=== PATIENT | male | born 1970 | race Two or more races ===

== ENCOUNTER 2018-03-18 18:03 | Emergency (ER) | payer MEDICAID ==
[~2018-03-18] VITALS: Ht 175.3 cm; Wt 86.2 kg
[2018-03-18 18:14] VITALS: BP 141/78
== END 2018-03-19 00:36 | disposition home or self-care (01) ==
LOC: EDBD 18:03 → ER 18:20
DX: S33.5XXA Sprain of ligaments of lumbar spine, initial encounter (principal); X50.1XXA Overexertion from prolonged static or awkward postures, initial encounter; Y93.67 Activity, basketball; Y92.89 Other specified places as the place of occurrence of the external cause; Y99.8 Other external cause status
CPT/HCPCS: 72100

== ENCOUNTER 2022-03-03 10:57 | Inpatient (IN) | payer MEDICAID ==
[~2022-03-03] VITALS: Ht 167.6 cm; Wt 92.8 kg
[2022-03-03 11:51] LABS: Basophils # (auto) 0 10 ^3/uL (0-0.2); Basophils % (auto) 0.3 % (0.0-2.0); Eosinophils # (auto) 0 10 ^3/uL (0-0.8); Eosinophils % (auto) 0.5 % (0.0-7.0); Hematocrit 44.3 % (41.0-53.0); Hemoglobin 14.9 g/dL (13.5-17.5); Lymphocytes # (auto) 1.5 10 ^3/uL (0.4-5.4); Lymphocytes % (auto) 18.2 % (10.0-50.0); Mean Corpuscular Hemoglobin 29.9 pg (28.0-32.0); Mean Corpuscular Hgb Conc. 33.7 g/dL (32.0-36.0); Mean Corpuscular Volume 88.7 fL (80.0-100.0); Monocytes # (auto) 0.6 10 ^3/uL (0-1.3); Monocytes % (auto) 6.9 % (0.0-12.0); Neutrophils % (auto) 74.1 % (37.0-80.0); Nucleated Red Blood Cells % 0.1 %; Red Blood Cells 4.99 10^6/uL (4.5-5.90); Red Cell Distribution Width 12.9 % (11.8-14.3); White Blood Cell 8.1 10^3/uL (4.4-10.8)
[2022-03-03 12:01] LABS: Albumin 4.3 g/dL (3.4-5.0); Calcium 9.3 mg/dL (8.5-10.1); Potassium 4.1 mmol/L (3.5-5.1)
[2022-03-03 12:06] LABS: BUN/Creatinine Ratio 16.4; Total Protein 8.4 g/dL (6.4-8.2)
[2022-03-03 12:42] LABS: Urine Bacteria NONE SEEN /hpf (None Seen); Urine Blood Negative /uL (Negative); Urine Mucus MODERATE (None Seen); Urine Specific Gravity 1.028 (1.001-1.035); Urine WBC 2 /hpf (0 - 3)
[2022-03-03] MEDS ORDERED: SODIUM CHLORIDE 0.9% 1,000 ML IVB ONE (13:45)
[2022-03-03] MEDS ORDERED: SODIUM CHLORIDE 0.9% 1,000 ML IV ONE (13:45)
[2022-03-03] MEDS ORDERED: KETOROLAC TROMETH 30 MG/ML 1ML VIAL IV ONE (13:45)
[2022-03-03] MEDS ORDERED: TAMSULOSIN HYDROCHLORIDE 0.4 MG CAP PO ONE (13:45)
[2022-03-03] MEDS ORDERED: FUROSEMIDE 40 MG/4 ML VIAL IV ONE (13:45)
[2022-03-03] MEDS ORDERED: HYDROcodone-ACET 5/325MG TAB PO PRN (14:00)
[2022-03-03] MEDS ORDERED: LORazepam 0.5 MG TAB PO PRN (14:00)
[2022-03-03] MEDS ORDERED: TEMAZEPAM 15 MG CAP PO PRN (14:00)
[2022-03-03] MEDS ORDERED: MAALOX PLUS or MAALOX 30 ML PO PRN (14:00)
[2022-03-03] MEDS ORDERED: ACETAMINOPHEN 325 MG TAB PO PRN (14:00)
[2022-03-03] MEDS ORDERED: ONDANSETRON HCL 4 MG/2 ML VIAL IV PRN (14:00)
[2022-03-03] MEDS ORDERED: DOCUSATE SOD 100 MG CAP PO PRN (14:00)
[2022-03-03] MEDS: SODIUM CHLORIDE 0.9% 1,000 ML IV SCH (22:09)
[2022-03-03 23:41] VITALS: BP 138/80
[2022-03-04 00:18] VITALS: BP 138/80
[2022-03-04] MEDS: SODIUM CHLORIDE 0.9% 1,000 ML IV SCH ×3 (01:16→21:47)
[2022-03-04 05:00] VITALS: BP 105/64
[2022-03-04] MEDS ORDERED: KEP500T PO ×3 (05:00→05:01)
[2022-03-04] MEDS ORDERED: CHOL20007 PO (05:03)
[2022-03-04] MEDS ORDERED: FENO145T27 PO (05:03)
[2022-03-04] MEDS ORDERED: ATOR20TA50 PO (05:08)
[2022-03-04] MEDS: levETIRAcetam 500 MG TAB PO SCH ×3 (05:13→21:45)
[2022-03-04 07:30] VITALS: BP 141/78
[2022-03-04 07:58] LABS: Basophils # (auto) 0 10 ^3/uL (0-0.2); Basophils % (auto) 0.3 % (0.0-2.0); Eosinophils # (auto) 0.1 10 ^3/uL (0-0.8); Eosinophils % (auto) 0.9 % (0.0-7.0); Hematocrit 41.6 % (41.0-53.0); Hemoglobin 14.1 g/dL (13.5-17.5); Lymphocytes # (auto) 2.1 10 ^3/uL (0.4-5.4); Lymphocytes % (auto) 22.3 % (10.0-50.0); Mean Corpuscular Hgb Conc. 33.9 g/dL (32.0-36.0); Mean Corpuscular Volume 88.7 fL (80.0-100.0); Monocytes # (auto) 0.8 10 ^3/uL (0-1.3); Monocytes % (auto) 8.6 % (0.0-12.0); Neutrophils # (auto) 6.4 10 ^3/uL (1.6-8.6); Neutrophils % (auto) 67.9 % (37.0-80.0); Nucleated Red Blood Cells % 0.1 %; Red Blood Cells 4.69 10^6/uL (4.5-5.90); Red Cell Distribution Width 12.9 % (11.8-14.3); White Blood Cell 9.5 10^3/uL (4.4-10.8)
[2022-03-04 08:08] LABS: Calcium 8.9 mg/dL (8.5-10.1); Potassium 3.9 mmol/L (3.5-5.1)
[2022-03-04 08:11] LABS: BUN/Creatinine Ratio 25.2
[2022-03-04] MEDS: TAMSULOSIN HYDROCHLORIDE 0.4 MG CAP PO SCH (08:26)
[2022-03-04] MEDS: FUROSEMIDE 20 MG TAB PO SCH (08:26)
[2022-03-04] MEDS: MORPHINE SULFATE INJ 2 MG/ml SYRG IV PRN ×3 (08:27→21:47)
[2022-03-04 12:00] VITALS: BP 118/71
[2022-03-04 16:00] VITALS: BP 116/72
[2022-03-04 22:00] VITALS: BP 132/77
[2022-03-04] MEDS ORDERED: ATORVASTATIN 20 MG TAB PO SCH (22:00)
[2022-03-05 05:08] VITALS: BP 104/52
[2022-03-05] MEDS: levETIRAcetam 500 MG TAB PO SCH ×2 (06:07→14:53)
[2022-03-05] MEDS: SODIUM CHLORIDE 0.9% 1,000 ML IV SCH ×2 (06:07→16:00)
[2022-03-05 06:38] LABS: Basophils # (auto) 0 10 ^3/uL (0-0.2); Basophils % (auto) 0.2 % (0.0-2.0); Eosinophils # (auto) 0.1 10 ^3/uL (0-0.8); Eosinophils % (auto) 1.7 % (0.0-7.0); Hematocrit 38.9 % (41.0-53.0); Hemoglobin 13.5 g/dL (13.5-17.5); Lymphocytes % (auto) 25.4 % (10.0-50.0); Mean Corpuscular Hemoglobin 30.3 pg (28.0-32.0); Mean Corpuscular Hgb Conc. 34.7 g/dL (32.0-36.0); Mean Corpuscular Volume 87.3 fL (80.0-100.0); Monocytes # (auto) 0.7 10 ^3/uL (0-1.3); Monocytes % (auto) 8.7 % (0.0-12.0); Neutrophils # (auto) 4.9 10 ^3/uL (1.6-8.6); Red Blood Cells 4.46 10^6/uL (4.5-5.90); Red Cell Distribution Width 12.8 % (11.8-14.3); White Blood Cell 7.7 10^3/uL (4.4-10.8)
[2022-03-05 06:54] LABS: Potassium 3.8 mmol/L (3.5-5.1)
[2022-03-05 07:30] VITALS: BP 121/69
[2022-03-05 08:00] VITALS: BP 118/64
[2022-03-05] MEDS: TAMSULOSIN HYDROCHLORIDE 0.4 MG CAP PO SCH (09:46)
[2022-03-05] MEDS: FUROSEMIDE 20 MG TAB PO SCH (09:47)
[2022-03-05] MEDS ORDERED: TAM04C PO (11:22)
[2022-03-05] MEDS ORDERED: ACET325T10 PO (11:22)
[2022-03-05] MEDS ORDERED: TRAM50TA2 PO (11:22)
[2022-03-05 12:00] VITALS: BP 129/92
[2022-03-05 14:08] VITALS: BP 118/64
[2022-03-05] MEDS ORDERED: TAMS0.4C36 PO (14:19)
== END 2022-03-05 17:34 | disposition home or self-care (01) | DRG 465 ==
LOC: ER 10:57 → OVERFLOW 14:05 → CENTRAL 23:15
PROVIDERS: ADMIT Hospitalist; ATTEND Internal Medicine Pulmonary Disease
DX: N20.0 Calculus of kidney (principal); K76.0 Fatty (change of) liver, not elsewhere classified; D35.02 Benign neoplasm of left adrenal gland; I10 Essential (primary) hypertension; G40.909 Epilepsy, unspecified, not intractable, without status epilepticus; R73.03 Prediabetes; M79.18 Myalgia, other site; R91.1 Solitary pulmonary nodule; E66.01 Morbid (severe) obesity due to excess calories; Z68.33 Body mass index [BMI] 33.0-33.9, adult; Z79.899 Other long term (current) drug therapy; Z20.822 Contact with and (suspected) exposure to COVID-19
CPT/HCPCS: 36415; 74176; 80048; 80053; 81001; 83690; 84484; 85025; 87426; 96374; G0378

== ENCOUNTER 2023-07-21 10:38 | Emergency (ER) | payer MEDICAID ==
[~2023-07-21] VITALS: Ht 167.6 cm; Wt 90.2 kg
[~2023-07-21 10:38] MED LIST: ACET-1882 PO; ATOR20TA50 PO; CHOL20007 PO; FENO145T27 PO; KEP500T PO; TAMS-35 PO; TAMS0.4C36 PO
[2023-07-21 11:16] LABS: Basophils # (auto) 0 10 ^3/uL (0-0.2); Basophils % (auto) 0.3 % (0.0-2.0); Eosinophils # (auto) 0 10 ^3/uL (0-0.8); Eosinophils % (auto) 0.2 % (0.0-7.0); Hematocrit 43.3 % (41.0-53.0); Hemoglobin 14.7 g/dL (13.5-17.5); Lymphocytes # (auto) 1.1 10 ^3/uL (0.4-5.4); Lymphocytes % (auto) 17.1 % (10.0-50.0); Mean Corpuscular Hemoglobin 29.8 pg (28.0-32.0); Mean Corpuscular Volume 87.7 fL (80.0-100.0); Monocytes # (auto) 0.8 10 ^3/uL (0-1.3); Monocytes % (auto) 11.9 % (0.0-12.0); Neutrophils # (auto) 4.7 10 ^3/uL (1.6-8.6); Neutrophils % (auto) 70.5 % (37.0-80.0); Nucleated Red Blood Cells % 0.1 %; Red Blood Cells 4.93 10^6/uL (4.5-5.90); Red Cell Distribution Width 13.3 % (11.8-14.3); White Blood Cell 6.7 10^3/uL (4.4-10.8)
[2023-07-21 11:33] LABS: INR 1.12 (0.9-1.15); Prothrombin Time 11.8 sec (9.3-11.8)
[2023-07-21 11:41] LABS: Alanine Aminotransferase 23 U/L (7-40); Albumin 4.7 g/dL (3.2-4.8); Alkaline Phosphatase 54 U/L (46-116); Anion Gap 7 (5-15); Aspartate Aminotransferase 21 U/L (13-40); BUN/Creatinine Ratio 9.6 (10.0-20.0); Bilirubin, Total 0.7 mg/dL (0.2-1.0); Blood Urea Nitrogen 15 mg/dL (9-23); Calcium 9.6 mg/dL (8.5-10.1); Carbon Dioxide 23 mmol/L (20-30); Chloride 109 mmol/L (98-107); Glucose 119 mg/dL (74-106); Potassium 3.6 mmol/L (3.5-5.1); Sodium 139 mmol/L (136-145)
[2023-07-21 11:43] LABS: Lactic Acid w/Reflex 2.2 mmol/L (0.4-2.0)
[2023-07-21] MEDS: SODIUM CHLORIDE 0.9% 1,000 ML IVB ONE (11:48)
[2023-07-21 11:50] VITALS: TEMP 99
[2023-07-21 12:05] LABS: Urine Bacteria None Seen /hpf (None Seen)
[2023-07-21 12:17] LABS: Urine Blood 3+ /uL (Negative); Urine Color Yellow (Yellow); Urine Mucus FEW (None Seen); Urine Protein, UAD 1+ (Negative); Urine Specific Gravity 1.034 (1.001-1.035); Urine Urobilinogen Normal (Negative); Urine WBC 6 /hpf (0 - 3); Urine pH 5.5 (5.0-9.0)
[2023-07-21 12:18] LABS: Urine Clarity HAZY (Clear)
[2023-07-21 12:26] LABS: Amphetamine Screen, Urine Neg (NEGATIVE); Barbiturate Scree,Urine Neg (NEGATIVE); Benzodiazephine Screen, Urine Neg (NEGATIVE); Cannabinoid Screen, Urine Pos (NEGATIVE); Cocaine Screen, Urine Neg (NEGATIVE); Opiate Scree,Urine Neg (NEGATIVE); Phencyclidine Screen, Urine Neg (NEGATIVE)
[2023-07-21] MEDS ORDERED: CEPH500T PO (13:08)
[2023-07-21] MEDS ORDERED: ZOFR4T PO (13:08)
[2023-07-21] MEDS ORDERED: IBUP-1454 PO (13:08)
[2023-07-21] MEDS ORDERED: TAMS-35 PO (13:12)
[2023-07-21 13:43] VITALS: BP 136/71; PULSE 61; RESP 16; O2SAT 100
== END 2023-07-21 13:49 | disposition home or self-care (01) ==
LOC: ER 10:38
DX: N20.0 Calculus of kidney (principal); I10 Essential (primary) hypertension; R31.9 Hematuria, unspecified; Z79.899 Other long term (current) drug therapy
CPT/HCPCS: 36415; 74176; 80053; 80307; 81001; 83605; 84484; 85025; 85610; 85730; 87040; 96360; 96361; 99284; J7030